=== PATIENT | male | born 1970 | race Caucasian/White ===

== ENCOUNTER 2018-07-13 22:39 | Emergency (ER) | payer BC ==
[~2018-07-13] VITALS: Ht 177.8 cm; Wt 86.2 kg
[2018-07-13 22:39] VITALS: BP_SYST 152
[2018-07-14] MEDS ORDERED: FOLIC ACID 1 MG, THIAMINE HCL 100 MG, MAGNESIUM SULFATE 1 GM, MVI 10 ML in NACL 0.9% 1,... IV ONE (00:15)
[2018-07-14 00:30] VITALS: BP_SYST 130
== END 2018-07-14 01:00 | disposition left against medical advice (07) ==
LOC: SED 22:39
DX: S00.83XA Contusion of other part of head, initial encounter (principal); F10.129 Alcohol abuse with intoxication, unspecified; V03.99XA Pedestrian with other conveyance injured in collision with car, pick-up truck or van, unspecified whether traffic or nontraffic accident, initial encounter; Y93.89 Activity, other specified; Y92.410 Unspecified street and highway as the place of occurrence of the external cause; Y99.8 Other external cause status